=== PATIENT | female | born 2000 | race Caucasian/White ===

== ENCOUNTER 2020-10-08 01:42 | Inpatient (IN) | payer OTHER ==
[~2020-10-08] VITALS: Ht 167.6 cm; Wt 73.3 kg
[2020-10-08] VITALS (7 sets, daily range): BP systolic 110–120; BP diastolic 56–62
[2020-10-08] MEDS ORDERED: LR 1,000 ML IV SCH (04:04)
[2020-10-08] MEDS ORDERED: ceFAZolin SOD 2 GM in IV 1 EA IV STA (04:04)
--- NOTE | 2020-10-08 04:14 | HPEPDOC ---
Obstetrical History & Physical General Date of Admission Oct 08, 2020 at 04:00 History of Present Illness 19 yo at 39+2 weeks gestation by LMP of 07Jan2020 c/w 11+1 week US on March2020 presented to L&D with regular, painful contractions. She denies any bleeding or leakage of fluid. She endorses movement. 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 Complications: No MEDICAL BILLING ASSOCIATE History: History of STD (History of chlamydia at age 15) Past Medical History Medical History History of depression and suicide attempt Surgical History: Other (Open appendectomy, wisdom teeth) Family History Significant Family History: No pertinent family hx Social History Marital Status: Family situation: Spouse/partner home Psychosocial History: Depression (History of depression and suicide attempt in past. Stable now with no issues) * Smoker: former Smoker Alcohol: Denies Drugs: denies Abuse Violence Screening Have you been hit/kicked/slapp: No Have you been sexually assault: No Imunizations Tdap status: current Influenza Status: needs Physical Examination Physical Examination GENERAL: Alert and oriented times three. ABDOMEN: Gravid and non-tender to touch. FETUS: Is vertex (VTX) by sterile vaginal examination (SVE) EXTREMITIES: No edema. Vital Signs/I&O Vital Signs Date Time Temp Pulse Resp B/P (MAP) Pulse Ox O2 Delivery O2 Flow Rate FiO2 10/08/20 02:03 98.2 97 18 120/62 (81) Laboratory Data Urine Culture: No Growth Pertinent Laboratoy Data Blood Type: B+ RBC Antibody Screen: Negative HIV: Negative Hepatitis B: Negative Hepatitis C: Unknown Rapid Plasma Reagin: Nonreactive Rubella: Immune Varicella: Immune Chlamydia/Gonorrhea: Negative Group B Streptococcus: Positive Quad Screen Test: Unknown Cystic Fibrosis: Positive (Heterozygous. FOB is negative) Glucose Tolerance Test: 61 Anatomy Ultrasound Placenta Location: Anterior Normal Anatomy: Yes Placenta Previa: No Steroid Therapy Steroid Therapy: No Vaginal Examination Dilation: 4 cm Effacement: 90% Station: -1 Cervical Consistency: Soft Cervical Position: Middle Presentation: Cephalic presentation Position: Vertex (occiput) Assessment Heart Rate (FHR): 130 Variability: Moderate Accelerations: Positive Decelerations: None Tocometer Contractions: Yes Frequency: regular Strength: palpated as moderate Assessment/Plan Assessment 19 yo at 39+2 weeks gestation presented in labor. Plan Admit for expectant management of labor. Will augment as clinically indicated. Apply IV fluids. Ancef for GBS prophylaxis (allergy to amoxicillin, though appears to be mild) regular diet as tolerated Patient may have epidural if desired. Anticipate . DO BERNADETTE Oliveira CHRISTOPHER J. DO Oct 08, 2020 04:14
[2020-10-08 04:35] LABS: HEMATOCRIT 38.5 % (36.0-47.0); HEMOGLOBIN 13.1 g/dl (12.0-15.5); MEAN CORPUSCULAR HEMOGLOBIN 33.5 pg (27.0-33.0); MEAN CORPUSCULAR VOLUME 98.5 fl (80.0-96.0); PLATELET COUNT, AUTOMATED 253 10^3/uL (150-450); RED BLOOD COUNT 3.91 10^6/uL (4.00-5.40); WHITE BLOOD COUNT 13.1 10^3/uL (4.0-10.0)
[2020-10-08] MEDS ORDERED: BUTORPHANOL 2 MG/ML INJ (J0595) IV ONE ×3 (06:00→13:45)
[2020-10-08] MEDS ORDERED: ONDANSETRON 4MG/2ML VIAL IV ONE ×2 (06:00→10:15)
--- NOTE | 2020-10-08 09:55 | IPNPDOC ---
Obstetrical Progress Note Date of Service Oct 08, 2020 Subjective Pt c/o increased discomfort with contractions, coping well on the ball at the bedside Objective Vital Signs Date Time Temp Pulse Resp B/P (MAP) Pulse Ox O2 Delivery O2 Flow Rate FiO2 10/08/20 07:18 20 10/08/20 07:12 97.9 10/08/20 05:48 83 Room Air 10/08/20 02:03 120/62 (81) Assessment Heart Rate (FHR): 120 Variability: Moderate Accelerations: Present Decelerations: None Tocometer Contractions: Yes Frequency: regular, every 2-5 min. Duration: greater than 60 seconds Strength: palpated as moderate Sterile Vaginal Examination Dilation: 6 cm Effacement (%): 90% Station: -3 Cervical Consistency: Soft Cervical Position: Middle Postion/Presentation: Cephalic presentation Assessment and Plan Age: 19 : 2 Term: 1 Pre-term: 0 Abortions: 0 Livin EGA at Admission: 39 (+2) Status: Reassuring Group B Streptococcus: Positive Anticipate: Vaginal Delivery Additional Comments may saline lock for hydrotherapy, encourage oral hydration and maternal movement. Intermittent auscultation per [facility] protocols. monitor for change in or maternal status. Continue GBS prophylaxis. Consider AROM with next exam, anticipate vaginal delivery. ELENI DELATORRE CNM Oct 08, 2020 09:55
[2020-10-08] MEDS ORDERED: ceFAZolin SOD 1 GM in D5W MINI-BAG PLUS 50 ML IV SCH (13:00)
[2020-10-08] MEDS ORDERED: OXYTOCIN DRIP 30 UNITS in IV 1 EA IV SCH ×2 (13:00→13:37)
[2020-10-08] MEDS ORDERED: DOCUSATE SODIUM 100MG CAPSULE PO PRN (13:45)
[2020-10-08] MEDS ORDERED: METHYLERGONOVINE MALEATE 0.2 MG TAB PO PRN (13:45)
[2020-10-08] MEDS ORDERED: miSOPROStol 200 MCG TAB (S0191) PR ONE (13:45)
[2020-10-08] MEDS ORDERED: MEASLES,MUMPS,RUBELLA VACCINE INJ (MMR-II) (90707) SC SCH (13:45)
[2020-10-08] MEDS ORDERED: LIDOCAINE 1% MDV 20ML VIAL INFIL ONE (13:45)
[2020-10-08] MEDS ORDERED: RHOGAM 300 MCG (1500 IU) INJ (J2790) IM SCH (13:45)
[2020-10-08] MEDS ORDERED: IBUPROFEN 800 MG TAB PO PRN (13:45)
[2020-10-08] MEDS ORDERED: BENZOCAINE 20% HEMORRHOIDAL OINTMENT 28GM TUBE TOP PRN (13:45)
--- NOTE | 2020-10-08 15:28 | DNPDOC ---
[facility] Delivery Note Delivery Note DATE OF DELIVERY: 08Oct2020 PREDELIVERY DIAGNOSIS: 39-2/7 weeks' gestation and labor. POST DELIVERY DIAGNOSIS: Delivered. PROCEDURE: Spontaneous vaginal delivery. MANAGEMENT DEVELOPMENT SPECIALIST: Rita Delatorre CNM ANESTHESIA: none. ESTIMATED BLOOD LOSS: 500 mL. FINDINGS: 7 pound 9 ounce female infant, Score 9/9, no nuchal cord. DELIVERY SUMMARY: Patient is a 19-year-old 2 now para 2-0-0-2 who was admitted to labor and delivery for active labor on 08Oct2020. Pt c/o urge to push in hands and knees at C/C/o with a BBOW. AROM for meconium stained amniotic fluid. Pt was coached to push with contractions to . At this point Sofya stated a need to change position an lay on her back and was assisted to move. Gradual progress was made to in OA presentation with restitution to KAMALA. No nuchal cord was noted after delivery of the head. The left anterior shoulder delivered easily followed by the posterior shoulder and corpus. The vigorous female infant was placed immediately skin to skin on the maternal abdomen where she was dried and stimulated to cry. The cord was clamped x2 after pulsation ceased and cut by the FOB. Pitocin infusion was initiated per protocol. The placenta delivered spontaneously, intact in Torres presentation with large bleeding. The fundus was massaged until firm and the cervix swept for several clots. The patient requested pain medication, 2mg stadol iv x1 was provided. Bleeding increased the fundus was massaged to firm and an additional clot was swept from the cervix. 1000mcg cytotec was placed pr. Examination of the perineum revealed a first degree laceration with left labial extension and hemostatic bilateral labial abrasions. Lidocaine was placed locally for analgesia. The first degree laceration was repaired using 3- 0 vicryl on CT1 using the Germain method. The right labial abrasion was reapproximated using a running suture with 4-0 vicryl on sh. Mother and baby entered the recovery phase in stable condition. RITA DELATORRE CNM Oct 08, 2020 14:53
[2020-10-08] MEDS: PRENATAL VITAMINS CHEWABLE TABLET PO SCH (16:48)
[2020-10-08] MEDS: ACETAMINOPHEN TAB 650MG DOSE (2X325MG) PO PRN (21:24)
[2020-10-09 06:07] VITALS: BP 100/56
[2020-10-09] MEDS: ACETAMINOPHEN TAB 650MG DOSE (2X325MG) PO PRN (08:00)
[2020-10-09] MEDS: PRENATAL VITAMINS CHEWABLE TABLET PO SCH (08:00)
--- NOTE | 2020-10-09 08:15 | IPNPDOC ---
Progress Note Date of Service: Oct 09, 2020 Day#: 1 Progress Note SUBJECT: 19-year-old 2 now Para 2 status post uncomplicated spontaneous vaginal delivery at 40 weeks' at of a female 7 pounds 9 ounces 3430 grams) with post vaginal laceration and repair, doing well day # 1 She has been ambulating, voiding spontaneously without issue and tolerating regular diet. Breast feeding without issue. Reports lochia is normal . Patient is ambulating well. [Reports some cramping with . Denies any pain. Voiding and stooling without difficulty]. OBJECTIVE: VITAL SIGNS: Within normal limits, afebrile. Alert and oriented times three. Breath sounds clear to auscultation. Heart rate: Regular rate and rhythm, no murmurs, rubs or gallops. Abdomen: Fundus firm at U-2. Soft, NTTP. [Minimal] lochia. ASSESSMENT: 19-year-old 2 now Para 2 status post uncomplicated spontaneous vaginal delivery after presenting in active labor delivered 40 weeks', doing well on day . Vitals within normal limits, afebrile, hemodynamically stable with no evidence of infection. PLAN: 1. Discharge to home tomorrow 2. Tylenol and Motrin for pain. 3. Encourage breast feeding and ambulation. 4. discus pp visit. . 5. Routine PP visit in 6 weeks in clinic. 6. Discussed return precautions at length. VS, I&O, 24H, Fishbone Vital Signs/I&O Vital Signs Date Time Temp Pulse Resp B/P (MAP) Pulse Ox O2 Delivery O2 Flow Rate FiO2 10/09/20 06:07 97.2 72 18 100/56 (71) 97 Room Air I&O- Last 24 Hours up to 6 AM 10/09/20 06:00 Intake Total 500 ml Output Total 950 ml Balance -450 ml Laboratory Data 24H LABS discussed phlebitis cystitis mastitis diet exercise perineal care Tereso Sierra MD Oct 09, 2020 08:14
[2020-10-10] MEDS ORDERED: INFLUENZA QUADRIVALENT PF VACCINE 0.5ML SYRINGE IM ONE (09:00)
== END 2020-10-09 16:10 | disposition home or self-care (01) | DRG 807 ==
LOC: M LDO 01:42 → M LDI 04:00 → M OBS 15:40
PROVIDERS: ADMIT Obstetrics & Gynecology; ATTEND Registered Nurse
PROC: 10E0XZZ Delivery of Products of Conception, External Approach (ICD-10-PCS; principal; 2020-10-08)
PROC: 10907ZC Drainage of Amniotic Fluid, Therapeutic from Products of Conception, Via Natural or Artificial Opening (ICD-10-PCS; 2020-10-08)
PROC: 0HQ9XZZ Repair Perineum Skin, External Approach (ICD-10-PCS; 2020-10-08)
DX: O99.824 Streptococcus B carrier state complicating childbirth (principal); Z37.0 Single live birth; Z3A.39 39 weeks gestation of pregnancy; O77.0 Labor and delivery complicated by meconium in amniotic fluid; O70.0 First degree perineal laceration during delivery